=== PATIENT | female | born 1995 | race Two or more races ===

== ENCOUNTER 2019-03-28 23:13 | Emergency (ER) | payer SELFPAY ==
[~2019-03-28] VITALS: Ht 162.6 cm; Wt 95.3 kg
[2019-03-28 23:25] VITALS: BP 138/75
[2019-03-28] MEDS ORDERED: ONDA4TAB12 PO (23:38)
[2019-03-28] MEDS ORDERED: SUMA50TA3 PO (23:38)
--- NOTE | 2019-03-28 23:39 | PHYS DOC ---
Past Medical History Past Medical History: Asthma, Other Additional Past Medical Histor: MIGRAINES, CLUSTER HEADACHES (MELODY FERNANDO APRN) Past Surgical History: Other Additional Past Surgical Histo: WISDOM TEETH (MELODY FERNANDO APRN) Alcohol Use: Occasionally Drug Use: None (MELODY FERNANDO APRN) Adult General Chief Complaint Chief Complaint: HEADACHE HPI HPI Patient is a 24 year old female patient with a history of migraine headaches and pneumonia who presents to the ED today complaining of 8 out of 10 throbbing pain behind her left eye that began yesterday consistent with a migraine headache. Patient is also complaining of nausea but no vomiting. Denies this being the worst headache in her life. She states she has tried a couple [id number] remedies with no relief. Denies any chance she is . (MELODY FERNANDO APRN) Review of Systems Review of Systems Constitutional: Denies fever or chills [] Eyes: Denies change in visual acuity, redness, or eye pain [] HENT: Denies nasal congestion or sore throat [] Respiratory: Denies cough or shortness of breath [] Cardiovascular: No additional information not addressed in HPI [] GI: Reports nausea. Denies abdominal pain, vomiting, bloody stools or diarrhea [] : Denies dysuria or hematuria [] Musculoskeletal: Denies back pain or joint pain [] Integument: Denies rash or skin lesions [] Neurologic: Reports migraine headache, denies focal weakness or sensory changes [] All other systems were reviewed and found to be within normal limits, except as documented in this note. (MELODY FERNANDO APRN) Current Medications Current Medications Current Medications Medications (Trade) Dose Ordered Sig/Jayden Start Time Stop Time Status Last Admin Dose Admin Diphenhydramine HCl (Benadryl) 25 mg 1X ONCE 03/29/19 00:00 03/29/19 00:01 DC 03/29/19 00:16 25 MG Promethazine HCl (Phenergan) 12.5 mg 1X ONCE 03/29/19 00:00 03/29/19 00:01 DC 03/29/19 00:16 12.5 MG Sumatriptan Succinate (Imitrex) 25 mg 1X ONCE 03/29/19 00:00 03/29/19 00:01 DC 03/29/19 00:16 25 MG (KULDEEP HAJI DO) Allergies Allergies Allergies Coded Allergies Type Severity Reaction Last Updated Verified No Known Drug Allergies 10/11/14 No (KULDEEP HAJI DO) Physical Exam Physical Exam Constitutional: Well developed, well nourished, no acute distress, non-toxic appearance. [] HENT: Normocephalic, atraumatic, bilateral external ears normal, oropharynx moist, no oral exudates, nose normal. [] Eyes: PERRLA, EOMI, conjunctiva normal, no discharge. [] Neck: Normal range of motion, no tenderness, supple, no stridor. [] Cardiovascular:Heart rate regular rhythm, no murmur [] Lungs & Thorax: Bilateral breath sounds clear to auscultation [] Abdomen: Bowel sounds normal, soft, no tenderness, no masses, no pulsatile masses. [] Skin: Warm, dry, no erythema, no rash. [] Back: No tenderness, no CVA tenderness. [] Extremities: No tenderness, no cyanosis, no clubbing, ROM intact, no edema. [] Neurologic: Alert and oriented X 3, normal motor function, normal sensory function, no focal deficits noted. Cranial nerves II through XII intact Psychologic: Affect normal, judgement normal, mood normal. [] (MELODY FERNANDO APRN) Current Patient Data Vital Signs Vital Signs Date Time Temp Pulse Resp B/P (MAP) Pulse Ox O2 Delivery O2 Flow Rate FiO2 03/28/19 23:25 98.6 84 14 138/75 (96) 98 Room Air 98.6 (KULDEEP HAJI DO) EKG EKG [] (MELODY FERNANDO APRN) Radiology/Procedures Radiology/Procedures [] (MELODY FERNANDO APRN) Course & Med Decision Making Course & Med Decision Making Pertinent Labs and Imaging studies reviewed. (See chart for details) This is a 24-year-old female patient who presents with a migraine headache since yesterday. Patient has history of migraine headaches, there is nothing unusual about her headache today. Patient was given pain relief in the ED, prescription for Imitrex, Zofran also provided and instructed to follow-up with her own PCP. (MELODY FERNANDO APRN) Dragon Disclaimer Dragon Disclaimer This electronic medical record was generated, in whole or in part, using a voice recognition dictation system. (MELODY FERNANDO APRN) Departure Departure Impression: Primary Impression: Migraine Disposition: 01 HOME, SELF-CARE Condition: STABLE Referrals: NO PCP (PCP) follow up with your doctor in one week Patient Instructions: Migraine Headache Additional Instructions: You were evaluated in the emergency room for a migraine headache, take the prescribed medications as ordered. Follow-up with your own doctor in the course of next week. Scripts Ondansetron (ONDANSETRON ODT) 4 Mg Tab.rapdis 1 TAB PO PRN Q6-8HRS, #16 TAB Prov: MELODY FERNANDO ANGLE 03/28/19 Sumatriptan Succinate (IMITREX) 50 Mg Tablet 1 TAB PO UD, #9 TAB 1 Refill Take one tablet then repeat in 2 hours if pain persist. Do not take more than 2 tablets per day Prov: KASSIEMELODY BARBOUR 03/28/19 Attending Signature Attending Signature I have reviewed the PA/SELF PROPELLED DREDGE OPERATOR's note and plan of care. I was available for consultation as needed during the patient's visit in the emergency department. I agree with the clinical impression, plan, and disposition. (KULDEEP HAJI DO) Problem Qualifiers Primary Impression: Migraine Migraine type: unspecified Status migrainosus presence: without status migrainosus Intractability: not intractable Qualified Codes: G43.909 - Migraine, unspecified, not intractable, without status migrainosus DEVONMELODY CHAUDHARI ANGLE Mar 28, 2019 23:39 KULDEEP HAJI DO Mar 29, 2019 01:13
[2019-03-29] MEDS ORDERED: PROMETHAZINE 12.5 MG TABLET. PO ONE
[2019-03-29] MEDS ORDERED: diphenhydrAMINE HCL 25 MG CAPSULE PO ONE
[2019-03-29] MEDS ORDERED: SUMAtriptan SUCCINATE 25 MG TABLET PO ONE
== END 2019-03-29 00:22 | disposition home or self-care (01) ==
LOC: ER 23:13
DX: G43.909 Migraine, unspecified, not intractable, without status migrainosus (principal); J45.909 Unspecified asthma, uncomplicated
CPT/HCPCS: 99284; Q0163; Q0169

== ENCOUNTER 2021-07-29 08:55 | Emergency (ER) | payer SELFPAY ==
[~2021-07-29] VITALS: Ht 165.1 cm; Wt 99.4 kg
[~2021-07-29 08:55] MED LIST: ONDA4TAB12 PO; SUMA50TA3 PO
[2021-07-29 09:00] VITALS: BP 127/58
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
== END 2021-07-29 09:38 | disposition home or self-care (01) ==
LOC: ER 08:55
DX: S80.01XA Contusion of right knee, initial encounter (principal); S60.311A Abrasion of right thumb, initial encounter; S60.410A Abrasion of right index finger, initial encounter; V49.49XA Driver injured in collision with other motor vehicles in traffic accident, initial encounter; Y92.488 Other paved roadways as the place of occurrence of the external cause; Y93.89 Activity, other specified; Y99.8 Other external cause status
CPT/HCPCS: 73120; 73562; 99284